=== PATIENT | male | born 2000 | race Caucasian/White ===

== ENCOUNTER 2019-12-01 07:47 | Outpatient (CLI) | payer OTHER, SELFPAY ==
--- NOTE | ~2019-12-01 | XR_ITS ---
EXAMINATION: XR chest 2V DATE: 12/01/2019 08:33 INDICATION: Nicotine dependence, diffuse chest pain TECHNIQUE: PA and lateral views of the chest are obtained. COMPARISON: None available FINDINGS: The lungs are free of acute opacities. A calcified nodule of the right upper lobe and calci fied right hilar and mediastinal lymph nodes are consistent with old granulomatous disease. There is no pleural effusion or pneumothorax. The cardiomediastinal silhouette is normal. The visualized bones and soft tissues are unremarkable. IMPRESSION: 1. No acute cardiopulmonary abnormality. Reviewed, dictated and finalized at location A.
[2019-12-01 08:39] LABS: Add Urine Microscopic? NO; Appearance Urine Clear (Clear); Basophils Percent Auto 0.6 % (0.2-1.2); Bilirubin Urine Negative (Negative); Blood Urine Negative (Negative); Color Urine Yellow (Yellow); Eosinophils Absolute Auto 0.1 K/mm3 (0-0.3); Eosinophils Percent Auto 1.7 % (0-4.4); Glucose Urine UA Negative (Negative); Hematocrit 48.7 % (42.0-52.0); Hemoglobin 16.5 g/dL (14.0-18.0); Ketones Urine Negative (Negative); Leukocyte Esterase Ur Negative LEU/UL (Negative); Lymphocytes Absolute Auto 2.56 K/mm3 (0.9-3.2); Lymphocytes Percent Auto 49.7 % (18.3-44.2); Mean Corpuscular HGB Conc 33.9 g/dl (32-36); Mean Corpuscular Hemoglobin 31.1 pg (26-34); Mean Corpuscular Volume 91.9 fl (80-100); Mean Platelet Volume 10.9 fl (7.4-10.4); Monocytes Absolute Auto 0.4 K/mm3 (0.1-0.6); Monocytes Percent Auto 8.3 % (2.6-8.5); Neutrophils Percent Auto 39.7 % (45.5-73.1); Nitrate Urine Negative (Negative); Platelet Count Result 205 k/mm3 (150-375); Protein Urine Negative (Negative); Red Cell Distribution Width 12.2 % (11.5-14.5); Specific Grav Ur 1.025 (1.001-1.035); Urobilinogen Urine Negative mg/dL (<2.0); White Blood Count 5.2 K/mm3 (4.5-10.0)
[2019-12-01 09:10] LABS: Alanine Aminotransferase 12 U/L (4-50); Albumin Level 5.1 g/dL (3.5-5.1); Alkaline Phosphatase 158 U/L (38-126); Anion Gap 11 mmol/L (8-16); Aspartate Amino Transferase 22 U/L (17-59); Bilirubin,Total 0.6 mg/dL (0.2-1.3); Blood Urea Nitrogen 16 mg/dL (9-20); Calcium 9.8 mg/dL (8.4-10.2); Carbon Dioxide 30 mmol/L (22-30); Chloride 99 mmol/L (98-107); Cholesterol 205 mg/dL (0-200); Estimated Glomerular Filt Rate > 60; Glucose 97 mg/dL (75-110); HDL Direct 42 mg/dL; Sodium 140 mmol/L (137-145); Triglycerides 121 mg/dL (<150)
[2019-12-01 09:21] LABS: LDL Cholesterol Direct 136 mg/dL
[2019-12-01 09:30] LABS: Vitamin D 25 Hydroxy 32.5 ng/mL
== END 2019-12-01 07:48 | disposition home or self-care (01) ==
PROVIDERS: Visit Provider Family Medicine
DX: Z00.00 Encounter for general adult medical examination without abnormal findings (principal); F32.9 Major depressive disorder, single episode, unspecified; F17.200 Nicotine dependence, unspecified, uncomplicated
CPT/HCPCS: 36415; 71046; 80053; 80061; 81003; 82306; 84443; 85025

== ENCOUNTER 2020-08-08 14:50 | Outpatient (CLI) | payer OTHER, SELFPAY ==
[2020-08-08 15:32] LABS: Cholesterol 173 mg/dL (0-200); HDL Direct 32 mg/dL; Triglycerides 56 mg/dL (<150)
[2020-08-08 15:44] LABS: LDL Cholesterol Direct 118 mg/dL
== END 2020-08-08 14:51 | disposition home or self-care (01) ==
PROVIDERS: PCP Family Medicine; Visit Provider Family Medicine
DX: E78.5 Hyperlipidemia, unspecified (principal)
CPT/HCPCS: 36415; 80061